=== PATIENT | male | born 2005 | race Two or more races ===

== ENCOUNTER 2025-07-10 16:41 | Emergency (ER) | payer OTHER, SELFPAY ==
[2025-07-10 17:13] VITALS: BP 128/72; PULSE 66; RESP 18; TEMP 36.8; O2SAT 99; BMI 32.1
--- NOTE | 2025-07-10 17:21 | EKG_ITS ---
[facility] Test Date: 2025-07-10 Pat Name: EDGAR FARAH Department: Room: - Gender: Male Branch Assistant: : 2005 Requested By: Kvng Castro Order Number: [id number] Reading MD: Kvng Csatro Measurements Intervals [place] Rate: 62 P: 49 [place]: 173 QRS: -1 QRSD: 93 T: 30 QT: 395 QTc: 403 Interpretive Statements SINUS RHYTHM No previous ECG available for comparison /store/S0/[id number]/ecg/[id number].pdf
--- NOTE | 2025-07-10 17:21 | PD.EDRME ---
Rapid Medical Screening Exam RME Arrival date/time: 07/10/25 16:41 20-year-old male with no known medical history presents to the emergency room with a chief complaint of dizziness and generalized weakness x 3 days I have greeted and performed a focused initial assessment of this patient. A comprehensive ED assessment and evaluation of the patient, analysis of all test results, and completion of the medical decision making process will be conducted by additional ED providers. Chief Complaint: Headache Time Seen by Provider: 07/10/25 16:59 Vital signs: Vital Signs Temperature 98.2 F 07/10/25 17:13 Pulse Rate 66 07/10/25 17:13 Respiratory Rate 18 07/10/25 17:13 Blood Pressure 128/72 07/10/25 17:13 Pulse Oximetry (%) 99 07/10/25 17:13 Oxygen Delivery Method Room Air 07/10/25 17:13 Vital signs reviewed by provider: Yes
[2025-07-10 18:14] LABS: Collection Type, Urine Clean Catch; WBC,Urine 0 /hpf (0-5)
[2025-07-10 18:17] LABS: Basophils # (Auto) 0.0 Thou/mm3 (0.0-0.2); Basophils % (Auto) 0 % (0-2.5); Eosinophils # (Auto) 0.1 Thou/mm3 (0.0-0.5); Eosinophils % (Auto) 1 % (0-10); Hematocrit 46.2 % (41.0-53.0); Hemoglobin 15.9 g/dL (13.5-16.0); Immature Granulocytes Auto 0.02 Thou/mm3 (0.00-0.00); Lymphocytes # (Auto) 2.6 Thou/mm3 (1.0-4.8); Lymphocytes % (Auto) 31 % (10-50); Mean Corpuscular HGB Conc 34.4 g/dl (31.0-37.0); Mean Corpuscular Hemoglobin 29.2 pg (25.0-35.0); Mean Corpuscular Volume 85 fL (80-100); Monocytes # (Auto) 0.7 Thou/mm3 (0.0-0.8); Monocytes % (Auto) 8 % (0-12); Neutrophils # (Auto) 5.0 Thou/mm3 (1.8-7.7); Neutrophils % (Auto) 60 % (37-80); Nucleated Red Blood Cell # 0.00 Thou/mm3 (0.00-0.00); Nucleated Red Blood Cell % 0 /100 WBC (0); Platelet Count 185 Thou/mm3 (140-440); RDW Standard Deviation 37.1 fL (35.1-43.9); Red Blood Count 5.45 Miln/mm3 (4.50-5.90); White Blood Count 8.5 Thou/mm3 (3.8-10.6)
[2025-07-10 18:30] LABS: B-Type Natriuretic Peptide < 20 pg/mL (0-100)
[2025-07-10 18:32] LABS: Alanine Aminotransferase 59 U/L (10-49); Albumin, Serum 5.2 gm/dL (3.5-5.0); Albumin/Globulin Ratio 1.9 (1.2-2.2); Alkaline Phosphatase 91 U/L (46-116); Anion Gap 9 (7-16); Aspartate Amino Transferase 34 U/L (0-34); BUN/Creatinine Ratio 11 Ratio (12-20); Bilirubin,Total 1.0 mg/dL (0.3-1.2); Blood Urea Nitrogen 9 mg/dL (9-23); Calcium 10.5 mg/dL (8.3-10.6); Calcium (Corrected) 10.5 mg/dL (8.5-10.1); Carbon Dioxide 27.8 mMol/L (20.0-31.0); Chloride 104 mMol/L (98-107); Creatinine (Component) 0.8 mg/dL (0.6-1.3); Estimated Creatinine Clearance 174.5 mL/min (>60); Globulin 2.8 gm/dL (2.3-3.5); Glucose 89 mg/dL (74-106); Magnesium 1.8 mg/dL (1.6-2.6); Osmolality,Calculated 278 (275-295); Potassium 4.5 mMol/L (3.4-5.1); Sodium 141 mMol/L (136-145); Total Protein 8.0 gm/dL (5.7-8.2); Troponin I < 0.002 ng/mL (0.0-0.045); eGFR > 60 See Note
[2025-07-10 18:38] LABS: Amorphous Crystals,Urine Present (Absent); Bilirubin,Urine Negative (Negative); Blood,Urine Negative (Negative); Clarity,Urine Clear (Clear/Hazy); Color,Urine Lt-Yellow (Lt Yel-Yel); Glucose, Urine Negative (Negative); Ketones,Urine Negative (Negative); Leukocyte Esterase,Urine Negative (Negative); Nitrite,Urine Negative (Negative); PH,Urine 6.5 (5.0-7.0); Protein,Urine Negative (Neg - Trace); RBC,Urine < 1 /hpf (0-3); Specific Gravity,Urine 1.020 (1.001-1.035); Squamous Epithelial Cell,Urine 2 /hpf (0-5); Urobilinogen,Urine Negative mg/dL (0.0-1.0)
[2025-07-10 19:17] LABS: Amphetamine/Methamp Scrn,U Negative (Negative); Barbiturate Screen,Urine Negative (Negative); Benzodiazepines Screen,Urine Negative (Negative); Benzoylecgonine Screen, Ur Negative (Negative); Fentanyl Screen,Urine Negative (Negative); Opiate Screen,Urine Negative (Negative); THC Screen,Urine Positive (Negative)
--- NOTE | 2025-07-10 20:17 | XR_ITS ---
Examination: CT brain head without contrast. 2-D sagittal coronal reconstructions Date and time of exam:July 10, 2025 2142 hours INDICATIONS: Headache dizziness beginning 3 days ago CTDI: vol (mGy):50 DLP: (mGycm):1015 Technique: Multiple CT axial sections of the brain have been obtained, 5 mm slice thickness. Contrast has not been administered. 2-D sagittal, coronal reconstructions have been obtained Low dose protocols were performed. One or more of the following dose reduction techniques were used; automated exposure control, adjustment of the mA and/or KV according to patient size, use of iterative reconstruction technique. Findings: No significant ventricular enlargement. Intra-axial or extra-axial hemorrhage density is not seen. No mass effect or midline shift Basal cisterns are not remarkable. Fourth ventricle is midline. Cranial vault intact. Impression: Negative for acute hemorrhage, mass effect or midline shift Advise clinical correlation and follow up accordingly
--- NOTE | 2025-07-10 20:17 | EDNOTE_ITS ---
ED Headache RME/HPI General Chief Complaint: Headache Stated Complaint: HEADACHE, DIZZINESS Time Seen by Provider: 07/10/25 16:59 Arrival date/time: 07/10/25 16:41 This is a case of 20-year-old male with no medical history came into the emergency room due to headache dizziness and general weakness for 3 days patient denies any head injury or trauma denies any blurring of vision denies any numbness or tingling sensation denies any nausea vomiting persistence of the symptoms this patient decided to sought consult here in the emergency room Limitations: no limitations RME / HPI RME / HPI Narrative: 07/10/25 16:41 20-year-old male with no known medical history presents to the emergency room with a chief complaint of dizziness and generalized weakness x 3 days I have greeted and performed a focused initial assessment of this patient. A comprehensive ED assessment and evaluation of the patient, analysis of all test results, and completion of the medical decision making process will be conducted by additional ED providers. Related Data Previous Rx's ?Medication ?Instructions ?Recorded lfcbkjovul-hgisgqo-uccnsvkj 50 1 tab PO Q6H PRN pain # 14 tabs 07/10/25 mg-325 mg-40 mg tablet meclizine 25 mg tablet 25 mg PO TID PRN dizziness # 14 tabs 07/10/25 ondansetron 4 mg disintegrating 4 mg PO Q8H PRN nausea and 07/10/25 tablet vomiting #20 tabs Allergies Allergy/AdvReac Type Severity Reaction Status Date / Time No Known Allergies Allergy Verified 07/10/25 16:43 Review of Systems Review of Systems Systems Reviewed: All systems reviewed, normal except as documented Constitutional Constitutional: Reports system reviewed and no additional complaints, except as documented, Reports as per HPI, Denies frequent falls, Reports headache(s) and Denies weakness Eyes Eyes: Reports system reviewed and no additional complaints, except as documented, Denies blurry vision and Denies loss of vision ENT Ears, Nose, Mouth, and Throat: Reports system reviewed and no additional complaints, except as documented, Reports as per HPI, Denies abnormal hearing, Denies disequilibrium, Reports dizziness, Reports headache(s) and Reports vertigo Cardiovascular Cardiovascular: Reports system reviewed and no additional complaints, except as documented, Reports as per HPI and Denies syncope Respiratory Respiratory: Reports system reviewed and no additional complaints, except as d ocumented and Reports as per HPI Gastrointestinal Gastrointestinal: Reports system reviewed and no additional complaints, except as documented, Reports as per HPI, Reports nausea and Reports vomiting Genitourinary Genitourinary: Reports system reviewed and no additional complaints, except as documented and Reports as per HPI Musculoskeletal Musculoskeletal: Reports system reviewed and no additional complaints, except as documented, Reports as per HPI, Denies abnormal gait, Denies numbness and Denies tingling Neurologic Neurologic: Reports system reviewed and no additional complaints, except as doc umented, Reports as per HPI, Denies abnormal gait, Denies abnormal hearing, Denies abnormal movements, Denies abnormal speech, Denies behavioral changes, Denies burning sensations, Denies confusion, Denies convulsions, Denies disequilibrium, Reports dizziness, Denies localized weakness, Denies frequent falls, Reports headache(s), Denies lack of coordination, Denies loss of vision, Denies memory loss, Denies numbness, Denies other visual disturbances, Denies paresthesias, Denies radicular pain, Denies restless legs, Denies seizure-like activity, Denies sensory deficit, Denies syncope, Denies tingling, Denies tremor(s), Reports vertigo and Denies weakness Psychiatric Psychiatric: Denies behavioral changes, Denies confusion and Denies memory loss ED Exam General Limitations: Present no limitations General appearance: Present alert, in no apparent distress and other (Patient is awake alert oriented not in distress nontoxic looking looking well-hydrated well-nourished) Head Head exam: Present atraumatic, normocephalic and normal inspection Eye Eye exam: Present normal appearance, PERRL, EOMI and other (No papilledema no hyphema) ENT ENT exam: Present normal exam, normal oropharynx, mucous membranes moist and other (Normal HEENT exam) Neck Neck exam: Present normal inspection, full ROM, trachea midline and other (Negative for meningeal sign); Absent tenderness, meningismus, lymphadenopathy or thyromegaly Chest Chest inspection: Present normal inspection and symmetric chest wall rise; Absent tenderness Respiratory Respiratory exam: Present normal lung sounds bilaterally; Absent respiratory distress, wheezes, stridor, accessory muscle use or prolonged expiratory phase Cardiovascular Cardiovascular exam: Present regular rate, normal rhythm and normal heart sounds; Absent bradycardia, tachycardia, irregular rhythm, systolic murmur or diastolic murmur Abdominal Exam Abdominal exam: Present soft and normal bowel sounds; Absent distention, tenderness, guarding, rebound, rigidity, diminished bowel sounds, hyperactive bowel sounds or hypoactive bowel sounds Extremities Exam Extremities exam: Present normal inspection and full ROM Back Exam Back exam: Present normal inspection and full ROM Neurological Exam Neurological exam: Present alert, oriented X3, CN II-XII intact, normal gait, reflexes normal and other (Awake alert oriented x 4 no focal deficit GCS 15/15 steady gait motor sensory reflex normal no slurring speech no facial droop CN II to XII is normal no facial droop no slurring speech negative Babinski); Absent motor sensory deficit Psychiatric Psychiatric exam: Present normal affect and normal mood Skin Skin exam: Present warm, dry, intact and normal color Course Quality Measures none Orders Category Date Time Status EKG (ED ONLY) *Do not use* NOW Care 07/10/25 17:[address] head/brain wo con Stat Exams 07/10/25 20:17 Completed EKG (ED Only) Stat Exams 07/10/25 17:21 Draft B-Type Natriuretic Peptide Stat Lab 07/10/25 18:05 Completed CBC Stat Lab 07/10/25 18:05 Completed Comprehensive Metabolic Panel Stat Lab 07/10/25 18:05 Completed Drug Screen,Urine Stat Lab 07/10/25 18:01 Completed Magnesium Stat Lab 07/10/25 18:05 Completed Troponin I Stat Lab 07/10/25 18:05 Completed Urinalysis Stat Lab 07/10/25 18:01 Completed HYDROcodone*/APAP 5/325 [[place] 5/325] Med 07/10/25 22:03 Discontinued 1 tab PO X1 ONE Ketorolac Inj [Toradol Inj] Med 07/10/25 22:03 Discontinued 30 mg IM X1 ONE Ondansetron Odt [Zofran Odt] Med 07/10/25 22:03 Discontinued 4 mg PO X1 ONE Vital Signs Vital signs: Vital Signs Temperature 98.2 F 07/10/25 17:13 Pulse Rate 66 07/10/25 17:13 Respiratory Rate 18 07/10/25 17:13 Blood Pressure 128/72 07/10/25 17:13 Pulse Oximetry (%) 99 07/10/25 17:13 Oxygen Delivery Method Room Air 07/10/25 17:13 Patient is afebrile not tachycardic not tachypneic BP stable not hypoxic oxygen saturation is 99% in room air Headache MDM Narrative MDM Narrative:: This is a case of 20-year-old male with no medical history came into the emergency room due to headache dizziness and general weakness for 3 days patient denies any head injury or trauma denies any blurring of vision denies any numbness or tingling sensation denies any nausea vomiting persistence of the symptoms this patient decided to sought consult here in the emergency room patient is awake alert oriented not in distress nontoxic looking neurological exam is normal awake alert oriented x 4 no focal deficit GCS 15/15 steady gait memory intact no slurring of speech CN II to XII is normal motor or sensory reflex were normal patient physical examination were normal and unremarkable eyes PERRL EOM intact no papilledema right eye signs stable BP stable not tachycardic not tachypneic afebrile and nonhypoxic patient blood test showed no leukocytosis no anemia kidney and liver function is normal no electrolyte imbalance urinalysis normal patient drug screen noted to be positive for marijuana patient CT scan of the head were normal patient was given pain medication and Zofran which patient condition markedly improved patient is pain- free upon discharge patient will follow-up with PCP in 2 days for reevaluation and possible referral to neurologist for headache and dizziness for any recurrence persistent or worsening symptoms return precaution in the ER was advised Patient was discharged with comfortable condition walking with stable gait. Patient verbalized no further complains explained diagnosis and answered patient question. Patient is comfortable with the proposed management plan including the need to follow up with his/her primary care physician and any specialist if applicable Discussed patient for any urgent condition or worsening sx, He/She needed to go to emergency room immediately or call 911. Patient acknowledge the responsibility to follow up as instructed and to monitor her/his symptoms. For any persistence of the symptoms for more than 3-5 days return precaution advised. Discussed the result of the test and was given printed discharge instruction Patient data External records reviewed:: [facility] previous records Clinical information provided by:: patient Social determinants that could affect healthcare access:: none Patient has the following chronic illnesses:: None How is presenting disease/condition affected by chronic disease/condition?: no chronic disease Evaluation data The following diagnostics were reviewed and interpreted by me:: lab results and radiology exam(s) Lab and/or radiology exams considered but not ordered:: Reviewed Interpretation Summary: Reviewed Medications / Prescriptions Medications or Prescriptions considered but not ordered:: Given Medication administrations:: Medication Administration History Discontinued Medications Hydrocodone Bitart/Acetaminophen (Hydrocodone/Apap 5/325 Tablet) 1 tab PO X1 ONE Stop: 07/10/25 22:04 Last Admin: 07/10/25 22:10 Dose: 1 tab Documented By: MARY Ketorolac Tromethamine (Ketorolac Inj 60 Mg/2 Ml Vial) 30 mg IM X1 ONE Stop: 07/10/25 22:04 Last Admin: 07/10/25 22:10 Dose: 30 mg Documented By: MARY Ondansetron HCl (Ondansetron Odt 4 Mg Tabrap) 4 mg PO X1 ONE; Protocol Stop: 07/10/25 22:04 Last Admin: 07/10/25 22:11 Dose: 4 mg Documented By: MARY Given Consultations Consultation(s) initiated? (list below): No Diagnosis Differential diagnosis headache: migraine, tension headache, headache and sinusitis Most likely diagnosis given after review of the tests above:: Headache Admission Indicated Admission indicated?: not indicated Explain why admission is indicated or not indicated:: Not indicated Admission Request Was there a request for admission?: No Admission Attestation Admission request attestation: Not indicated Disposition Plan Disposition Plan: Discharge Discharge Attestation Discharge Attestation: The patient and all family members were given an opportunity to ask questions and understood the discharge instructions. Discharge instructions specifically effects, indications for sooner follow up or return to the emergency department, and the expected course of current diagnosis. Patient condition: Stable Discharge Plan Plan Patient Disposition: HOME (Self Care) Patient condition on transfer: Stable Prescriptions/Referrals Prescriptions/Med Rec: New ovyqhvxwez-xpvktat-tpqvuzrf 50-325-40 mg tablet 1 tab PO Q6H PRN (Reason: pain) Qty: 14 0RF ondansetron 4 mg tablet,disintegrating 4 mg PO Q8H PRN (Reason: nausea and vomiting) Qty: 20 0RF meclizine 25 mg tablet 25 mg PO TID PRN (Reason: dizziness) Qty: 14 0RF Referrals: No Primary/Family,Physician [Primary Care Provider] - In 1 week Problem List Clinical Impression: Headache, Dizziness Patient/Caregiver Discharge Instructions Education Materials: ED Dizziness, Uncertain Cause Additional Instructions: Follow-up with your primary care physician in 2 days for reevaluation and to be referred to neurologist for further evaluation and treatment of headache and dizziness recurrence persistent worsening symptoms or any emergent concern call 911 or go to the nearest emergency room take your medication as directed increase water intake keep hydrated spatulate Gatorade for hydration is advised Print Language: Belarusian Stand Alone Forms: [facility]rill Award Info., Work/School Release, Patient Portal Info Letter PA/HOME HEALTH CAREGIVER Supervising Physician PA/HOME HEALTH CAREGIVER Supervising Physician: Dr garcia
[2025-07-10] MEDS: KETOROLAC INJ 60 MG/2 ML VIAL 30 MG IM (22:10)
[2025-07-10] MEDS: HYDROcodone/APAP 5/325 TABLET 1 TAB PO (22:10)
[2025-07-10] MEDS: ONDANSETRON ODT 4 MG TABRAP PO (22:11)
[2025-07-10 22:13] VITALS: BP 121/64; PULSE 61; RESP 18; TEMP 36.7; O2SAT 99
== END 2025-07-10 22:15 | disposition home or self-care (01) ==
PROVIDERS: Nurse Practitioner Family; Emergency Provider Emergency Medicine
DX: R51.9 Headache, unspecified (principal); R42 Dizziness and giddiness; R53.1 Weakness
CPT/HCPCS: 36415; 70450; 80053; 80307; 81001; 83735; 83880; 84484; 85025; 93005; 96372; 99283; J1885; Q0162; A9270